=== PATIENT | male | born 1975 | race Caucasian/White ===

== ENCOUNTER → 2019-12-26 | Outpatient (CLI) | payer BC ==
--- NOTE | 2019-12-26 13:51 | Diagnostic Imaging Report ---
PROCEDURE: US Scrotum. TECHNIQUE: Multiple real-time grayscale images were obtained over the scrotum in various projections bilaterally. INDICATION: Pain and swelling to the scrotum. Right testicle measures 4.5 x 2.2 x 3.3 cm and the left testicle measures 4.3 x 2.4 x 3.3 cm. Both testes demonstrate homogeneous echotexture. No discrete testicular mass is detected. There is blood flow to both testes. No abnormal vascularity to the epididymis is seen. No epididymal mass is identified. There are small hydroceles bilaterally. No varicocele is detected. IMPRESSION: 1. No evidence of testicular mass or vascular compromise. 2. Small bilateral hydroceles. Dictated by: Dictated on workstation # [id number]
== END ==
LOC: RAD 12:03
PROVIDERS: ATTEND Physician Assistant
DX: N43.3 Hydrocele, unspecified (principal)
CPT/HCPCS: 76870

== ENCOUNTER 2023-05-05 09:04 | Outpatient (CLI) | payer BC | END 2023-05-05 09:25 | LOC: SLEEP 09:04 | PROVIDERS: ATTEND Physician Assistant | DX: R06.83 Snoring (principal); R53.83 Other fatigue | CPT/HCPCS: G0399 ==